=== PATIENT | female | born 1960 | race Hispanic/Latino ===

== ENCOUNTER 2018-06-21 08:28 | Outpatient (CLI) | payer SELFPAY ==
[2018-06-21 10:00] LABS: ALT (SGPT) 25 U/L (8-55); AST (SGOT) 24 U/L (5-34); Albumin 4.4 g/dL (3.5-5.0); Alkaline Phosphatase 115 U/L (40-150); Anion Gap 10 mmol/L (10-20); BUN (Urea Nitrogen) 14 mg/dL (9.8-20.1); Bilirubin, Total 1.6 mg/dL (0.2-1.2); Calc. Creatinine Clearance 0 mL/min (70-130); Calcium 9.8 mg/dL (7.8-10.44); Carbon Dioxide 30 mmol/L (22-29); Chloride 102 mmol/L (98-107); Estimated GFR-MDRD 80; Globulin 3.2 g/dL (2.4-3.5); Glucose 96 mg/dL (70-105); Potassium 3.8 mmol/L (3.5-5.1); Protein, Total 7.6 g/dL (6.0-8.3); Sodium 138 mmol/L (136-145)
--- NOTE | 2018-06-21 11:48 | CT ---
CHEST CT SCAN WITH IV CONTRAST: History: Renal insufficiency. Known renal mass, M28.89. FINDINGS: No evidence for pulmonary nodular or pulmonary metastasis. No mediastinal mass or adenopathy. No pleu ral effusion or pericardial effusion. Several small bullae. Minimal pleural thickening, particularly posteriorly on the left. Visualized upper abdomen is unremarkable. IMPRESSION: No evidence for pulmonary metastasis. No mediastinal mass or adenopathy. Several small bullae. Minima l posterior left pleural thickening. POS: [facility]
--- NOTE | 2018-06-21 12:08 | CT ---
ABDOMEN AND PELVIC CT SCAN WITH AND WITHOUT IV CONTRAST WITH MULTIPHASE IMAGING: History: Renal mass, N28.89. Renal insufficiency. FINDINGS: Visualized liver, gallbladder, pancreas, spleen, adrenal glands are unremarkable. No evidence for dalton al calculus or acute obstruction. There is a 5.4 cm diameter enhancing solid mass involving the la teral aspect of the lower lateral right kidney, evidence for renal cell carcinoma. Patent right renal vein and inferior vena cava. No evidence for adenopathy. Status post hysterectomy with a normal size d left ovary which contains two small central calcific foci. Normal appearing appendix. Minimal colon ic diverticulosis without acute diverticulitis. IMPRESSION: Solid enhancing right renal mass evidence for malignancy. Patent right renal vein and inferior vena c radha. No adenopathy or other acute process. POS: [facility]
[2018-06-21] MEDS ORDERED: Iopamidol 370 76% 100 ML VIAL ONE (13:16)
== END 2018-06-21 08:29 | disposition home or self-care (01) ==
LOC: CT 08:28
PROVIDERS: ATTEND Urology
DX: N28.89 Other specified disorders of kidney and ureter (principal); N28.9 Disorder of kidney and ureter, unspecified; R35.0 Frequency of micturition; R10.31 Right lower quadrant pain; J43.9 Emphysema, unspecified; J92.9 Pleural plaque without asbestos
CPT/HCPCS: 36415; 71260; 74178; 80053; 82565; Q9967

== ENCOUNTER 2018-07-06 09:28 | Outpatient (CLI) | payer OTHER ==
[2018-07-06 10:48] LABS: Hemoglobin 13.1 g/dL (12.0-16.0); Mean Corpuscular HGB CONC 34.3 g/dL (32.0-36.0); Mean Corpuscular Hemoglobin 31.4 pg (27.0-31.0); Mean Corpuscular Volume 91.8 fL (78.0-98.0); Platelet Count 232 thou/uL (130-400); RBC Distribution Width 11.9 % (11.5-14.5); Red Blood Cell (RBC) Count 4.18 mill/uL (4.20-5.40); White Blood Cell (WBC) Count 6.3 thou/uL (4.8-10.8)
[2018-07-06 10:55] LABS: INR-International Normal Ratio 1.1; PTT 31.4 SEC (22.9-36.1); Prothrombin Time 14.2 SEC (12.0-14.7)
--- NOTE | 2018-07-06 11:10 | RAD ---
TWO VIEW CHEST: Indication: Pre-operative evaluation. FINDINGS: ts o Cardiac silhouette is at upper limits of normal in size. There is no lobar consolidation, effusion, o r pneumothorax. Osseous structures reveal mild degenerative changes. IMPRESSION: No focal consolidation. Cardiac silhouette is at upper limits of normal. POS: [facility]
[2018-07-06 11:29] LABS: Anion Gap 13 mmol/L (10-20); BUN (Urea Nitrogen) 13 mg/dL (9.8-20.1); Calc. Creatinine Clearance 0 mL/min (70-130); Calcium 9.4 mg/dL (7.8-10.44); Carbon Dioxide 28 mmol/L (22-29); Chloride 104 mmol/L (98-107); Estimated GFR-MDRD 81; Glucose 90 mg/dL (70-105); Potassium 3.6 mmol/L (3.5-5.1); Sodium 141 mmol/L (136-145)
[2018-07-06 12:03] LABS: Bilirubin Negative (Negative); Blood, Urine Negative (Negative); Clarity CLEAR (Clear); Glucose, Urine (Dipstick) Negative (Negative); Leukocyte Negative (Negative); Nitrite Negative (Negative); Protein, Urine (Dipstick) Negative (Neg-Trace); Specific Gravity, Urine 1.019 (1.002-1.036); Urobilinogen 0.2 mg/dL (0.2-1.0)
== END 2018-07-06 09:29 | disposition home or self-care (01) ==
LOC: LABBT 09:28
PROVIDERS: ATTEND Urology
DX: Z01.818 Encounter for other preprocedural examination (principal); N28.89 Other specified disorders of kidney and ureter
CPT/HCPCS: 71046; 80048; 81003; 85027; 85610; 85730; 87086; 93005; 93010

== ENCOUNTER 2018-07-08 08:30 | Inpatient (IN) | payer OTHER, SELFPAY ==
[2018-07-06 10:08] VITALS: BMI 37.5
[2018-07-20] MEDS ORDERED: Fentanyl 250 MCG/5 ML VIAL ONE (06:22)
[2018-07-20] MEDS ORDERED: Gentamicin 80 MG/2 ML VIAL ONE (06:32)
[2018-07-20] MEDS ORDERED: Levofloxacin 500 mg/D5W 100 ml Premix Bag ONE (06:54)
[2018-07-20] MEDS ORDERED: Lidocaine 1.5% w/Epi 1:200K 30 ML VIAL (Epid Use) ONE (07:10)
[2018-07-20] MEDS ORDERED: Midazolam HCl 2 mg/2 ml Vial ONE (07:11)
[2018-07-20] MEDS ORDERED: Fentanyl 100 MCG/2 ML VIAL ONE (07:48)
[2018-07-20] MEDS ORDERED: Ropivacaine 0.2% HCl/PF 20 ML ONE (08:12)
[2018-07-20] MEDS ORDERED: Ropivacaine 0.5% HCl/PF (150 MG/30 ML VIAL) ONE (08:13)
[2018-07-20] MEDS ORDERED: Hydrocerin (Eucerin) Cream 120 gm Jar TOP PRN (08:30)
[2018-07-20] MEDS ORDERED: Promethazine HCl 25 MG SUPP PR PRN (08:30)
[2018-07-20] MEDS ORDERED: Promethazine HCl 25 MG/ML VIAL IM PRN (08:30)
[2018-07-20] MEDS ORDERED: Ondansetron PF 4 MG/2 ML Vial IVP PRN ×2 (08:30→11:33)
[2018-07-20] MEDS ORDERED: diphenhydrAMINE 50 MG/ML VIAL IM PRN (08:30)
[2018-07-20] MEDS ORDERED: Naloxone HCl 0.4 mg/ml Vial IV PRN (08:30)
[2018-07-20] MEDS ORDERED: Naloxone HCl 0.4 mg/ml Vial IVP PRN (08:30)
[2018-07-20] MEDS ORDERED: Bupivacaine 0.25% 10 ML VIAL EPIDURAL PRN (08:30)
[2018-07-20] MEDS ORDERED: diphenhydrAMINE 50 MG/ML VIAL IVP PRN (08:30)
[2018-07-20] MEDS ORDERED: Glycopyrrolate 0.2 MG/ML 5 ML SYRINGE ONE (11:33)
[2018-07-20] MEDS ORDERED: Ondansetron PF 4 MG/2 ML Vial ONE (11:33)
[2018-07-20] MEDS ORDERED: Dexamethasone 20 MG/5 ML VIAL ONE (11:33)
[2018-07-20] MEDS ORDERED: Rocuronium Bromide 10 MG/ML (10ML VIAL) ONE (11:33)
[2018-07-20] MEDS ORDERED: Lidocaine 1% PF 5 ML VIAL ONE (11:33)
[2018-07-20] MEDS ORDERED: PROPOFOL 200 MG/20 ML VIAL ONE (11:33)
[2018-07-20] MEDS ORDERED: ePHEDrine 50 MG/ML VIAL ONE ×2 (11:33)
[2018-07-20] MEDS ORDERED: hydrALAZINE 20 MG/ML VIAL SLOW IVP PRN ×2 (11:42)
[2018-07-20] MEDS ORDERED: Fentanyl 5 mcg/Bup 0.075% Cadd 100 ML EPIDURAL ONE (11:52)
[2018-07-20] MEDS ORDERED: Acetaminophen 1,000 MG in Premix Bag 1 BAG IVPB SCH (12:00)
[2018-07-20 12:09] LABS: #Lymphocytes 0.8 thou/uL (1.20-3.40); #Monocytes 0.1 thou/uL (0.11-0.59); #Neutrophils 12.1 thou/uL (1.40-6.50); %Basophils 0.1 % (0.0-1.0); %Eosinophils 0.3 % (0.0-10.0); %Lymphocytes 6.5 % (21.0-51.0); %Monocytes 0.8 % (0.0-10.0); %Neutrophils 92.4 % (42.0-75.0); Hemoglobin 12.5 g/dL (12.0-16.0); Mean Corpuscular HGB CONC 33.7 g/dL (32.0-36.0); Mean Corpuscular Hemoglobin 31.3 pg (27.0-31.0); Mean Corpuscular Volume 93.1 fL (78.0-98.0); Mean Platelet Volume 8.1 fL (7.4-10.4); Platelet Count 196 thou/uL (130-400); RBC Distribution Width 11.8 % (11.5-14.5); Red Blood Cell (RBC) Count 3.99 mill/uL (4.20-5.40); White Blood Cell (WBC) Count 13.1 thou/uL (4.8-10.8)
--- NOTE | 2018-07-20 12:18 | OP ---
DATE OF PROCEDURE: 07/20/2018 PREOPERATIVE DIAGNOSES: A 57-year-old female with history of right mid to lower pole renal mass measuring 5.4 cm, suspicious for renal cell carcinoma. POSTOPERATIVE DIAGNOSES: A 57-year-old female with history of right mid to lower pole renal mass measuring 5.4 cm, suspicious for renal cell carcinoma. PROCEDURE PERFORMED: Right radical nephrectomy. ANESTHESIA: General epidural. ASSIST: Tiburcio Powell MD ESTIMATED BLOOD LOSS: 150 mL. IV FLUIDS: 2 L. COMPLICATIONS: None apparent. DISPOSITION: To recovery room in stable condition. INDICATIONS FOR PROCEDURE AND HISTORY: Ms. Duran is a pleasant 57-year-old morbidly obese female, who was referred to me by Nephrology for right renal mass suspicious for renal cell carcinoma. Physical exam demonstrates she is morbidly obese, short in stature, otherwise unremarkable. CT demonstrates renal mass suspicious for renal cell carcinoma located in the mid to lower pole. We discussed various treatment options including attempt a partial versus radical nephrectomy. With all risks and benefits outlined, She desired to proceed with a right radical nephrectomy. Moreover given size location partial nephrectomy would be quite challenging. Metastatic workup with CT of the chest is negative. Risks and complications including, but not limited to, bleeding, pain, infection, injury to adjacent organs, PE, DVT, perioperative morbidity or mortality, wound complications such as dehiscence, bulge, or hernia, increased risk due to morbid obesity, chronic pain, renal insufficiency, failure requiring acute on chronic hemodialysis, was reviewed with her in detail. All questions were answered to her satisfaction and she desired to proceed without reservation. DESCRIPTION OF PROCEDURE: After informed consent was signed, the patient was taken to the operating room, placed in a supine position. An epidural anesthesia was administered in preoperative area. General endotracheal anesthesia and an OG tube was placed and broad-spectrum antibiotics were provided. The patient was placed in the right flank position after a 16-[place] Mike catheter was placed. All pressure points were padded and protected and secured at all times. She is morbidly obese, with a very short stature. CT corresponds renal hilum at the level of the 11th rib. Therefore, we utilized a retroperitoneal sub 11th incision to approach the kidney. Incision was made just lateral to the paraspinous muscle toward the anterior abdominal region. Subcutaneous fascia was opened to the limits of skin incision. We dissected the 11th rib to the tip, subsequently opened the anterior abdominal musculature using blunt and sharp dissection. The retroperitoneal space was entered, mobilizing the kidney superiorly and posteriorly off the psoas muscle. The ureter was sharply dissected and isolated with a vessel loop. The upper pole was easily mobilized using sharp and blunt dissection. We used intermittent cautery , and ligature to obtain hemostasis. The renal hilum was somewhat treacherous as there were parasitic vessels. Moreover, the peritoneum was densely adherent to the anterior portion of the renal mass. Therefore, we carefully dissected the upper pole complete leaving the adrenal gland in-situ. At this time, we mobilized the kidney from the ureter to the UPJ dissecting the inferior pole of the kidney. The peritoneum appeared to be very adherent to the anterior aspect of the kidney, where the renal mass was present. Using sharp dissection, we tried to mobilize the peritoneum off the renal mass. There appeared to be a peritoneal breach at the level of the mid to upper pole. We did see a breach, in which liver was visualized. There was no inadvertent injury to the liver. At this time, I was able to mobilize the renal hilum posteriorly approaching the hilum as the anterior aspect was somewhat treacherous. There was a main renal artery corresponding to the CT. The renal artery was sharply dissected and doubly ligated using 0 silk. Large hemoclips were also applied and it was subsequently divided. The renal vein remained in- situ. We mobilized the kidney anteriorly with the renal artery divided. The anterior aspect of the kidney off the renal mass and was subsequently dissected to render the rest of the peritoneum free off the renal mass. Therefore, at this time, the only thing that was attached in the kidney was the renal vein, which was isolated using 0 silk tie, ligated x2, and filipe x2, and divided subsequently. The peritoneal breech at the level of the liver was then closed with 2-0 chromic in a continuous fashion. The wound was copiously irrigated. Floseal was then placed at the level of the renal hilum. The patient was placed in a relatively neutral position and the incision was closed in 2 layers with 0 PDS. We did irrigate the wound with irrigation prior to closure. The skin was closed with skin filipe. She tolerated the procedure well. Extubated and transported to the recovery room in stable condition. Job ID: [id number] [facility]
[2018-07-20 12:30] LABS: Anion Gap 12 mmol/L (10-20); BUN (Urea Nitrogen) 9 mg/dL (9.8-20.1); Calc. Creatinine Clearance 114 mL/min (70-130); Calcium 8.7 mg/dL (7.8-10.44); Carbon Dioxide 25 mmol/L (22-29); Chloride 106 mmol/L (98-107); Estimated GFR-MDRD 74; Glucose 132 mg/dL (70-105); Potassium 3.8 mmol/L (3.5-5.1); Sodium 139 mmol/L (136-145)
--- NOTE | 2018-07-20 12:35 | RAD ---
PORTABLE CHEST: History: Patient is status post right nephrectomy. Evaluation for pneumothorax. FINDINGS: Heart size is enlarged. Mediastinal structures are unremarkable. Free air under the right hemidiaphra gm compatible with recent surgery. There is a tiny apical pneumothorax present. Left lung is clear. IMPRESSION: Tiny right apical pneumothorax. POS: [facility]
[2018-07-20] MEDS: Sodium Chloride 0.9% 1,000 ML IV SCH ×2 (13:23→21:30)
[2018-07-20] MEDS: ADMIXTURE FEE CHEMO IVPB SCH ×2 (14:42→21:32)
[2018-07-20] MEDS: SODIUM CHLORIDE 0.9% IVPB SCH ×2 (14:42→21:32)
[2018-07-20] MEDS: CEFOXITIN IVPB SCH ×2 (14:42→21:32)
[2018-07-20] MEDS: Albuterol Sulfate 1.25 MG/3 ML NEB NEB SCH ×2 (15:04→21:17)
--- NOTE | 2018-07-20 17:02 | RAD ---
PORTABLE CHEST: Date: 07/20/18 HISTORY: Follow-up pneumothorax. COMPARISON: Earlier exam of same date. FINDINGS: The tiny apical pneumothorax seen on the right side on the previous study is not definitely visualize d on this study. Free air related to right nephrectomy under the hemidiaphragm is again present. IMPRESSION: Right pneumothorax appears to have resolved. I do not see any definite pneumothorax on this film. Findings discussed with Dr. Gregory. CODE CR. POS: [facility]
[2018-07-20] MEDS: Mometasone/Formoterol 120 PUFF INHALER INH SCH (18:48)
[2018-07-20] MEDS ORDERED: [UNRECOGNIZED DRUG - OTHER] PO SCH (21:00)
[2018-07-20] MEDS: Acetaminophen 1,000 MG in Premix Bag 1 BAG IVPB SCH (21:30)
[2018-07-20] MEDS: Famotidine/PF 20 mg/2ml Vial SLOW IVP SCH (21:31)
[2018-07-20] MEDS: Docusate 100 MG CAP PO SCH (21:31)
[2018-07-20] MEDS: Hydrochlorothiazide 25 MG TAB PO SCH (21:31)
[2018-07-21] MEDS: Acetaminophen 1,000 MG in Premix Bag 1 BAG IVPB SCH ×2 (03:33→09:15)
[2018-07-21] MEDS: Fentanyl 5 mcg/Bup 0.075% Cadd 100 ML EPIDURAL SCH ×2 (04:21→21:27)
[2018-07-21 05:14] LABS: #Lymphocytes 1.5 thou/uL (1.20-3.40); #Neutrophils 14.7 thou/uL (1.40-6.50); %Basophils 0.2 % (0.0-1.0); %Eosinophils 0.1 % (0.0-10.0); %Lymphocytes 8.7 % (21.0-51.0); %Monocytes 5.6 % (0.0-10.0); %Neutrophils 85.4 % (42.0-75.0); Hemoglobin 11.3 g/dL (12.0-16.0); Mean Corpuscular HGB CONC 33.2 g/dL (32.0-36.0); Mean Corpuscular Volume 93.3 fL (78.0-98.0); Mean Platelet Volume 7.6 fL (7.4-10.4); Platelet Count 179 thou/uL (130-400); Red Blood Cell (RBC) Count 3.65 mill/uL (4.20-5.40); White Blood Cell (WBC) Count 17.2 thou/uL (4.8-10.8)
[2018-07-21] MEDS: Sodium Chloride 0.9% 1,000 ML IV SCH ×3 (05:21→13:36)
[2018-07-21 05:24] LABS: Anion Gap 14 mmol/L (10-20); BUN (Urea Nitrogen) 13 mg/dL (9.8-20.1); Calc. Creatinine Clearance 77 mL/min (70-130); Calcium 8.5 mg/dL (7.8-10.44); Carbon Dioxide 21 mmol/L (22-29); Chloride 107 mmol/L (98-107); Estimated GFR-MDRD 47; Glucose 132 mg/dL (70-105); Potassium 4.1 mmol/L (3.5-5.1); Sodium 138 mmol/L (136-145)
[2018-07-21] MEDS: ADMIXTURE FEE CHEMO IVPB SCH ×3 (05:58→21:27)
[2018-07-21] MEDS: CEFOXITIN IVPB SCH ×3 (05:58→21:27)
[2018-07-21] MEDS: SODIUM CHLORIDE 0.9% IVPB SCH ×3 (05:58→21:27)
[2018-07-21] MEDS: Mometasone/Formoterol 120 PUFF INHALER INH SCH ×2 (08:05→18:44)
[2018-07-21] MEDS: Albuterol Sulfate 1.25 MG/3 ML NEB NEB SCH ×3 (08:11→18:42)
--- NOTE | 2018-07-21 08:12 | PRG ---
DATE OF SERVICE: 07/21/2018 SUBJECTIVE: The patient is doing well. Pain is adequately controlled with epidural. Denies nausea, vomiting, fever. Has good appetite. The patient denies short shortness of breath. OBJECTIVE: VITAL SIGNS: Stable. T-max of 99, T current 98.6, 72, 16, 100% on room air, 91/55. I and Os 3430 in, 1450 out. Urine is clear. P.o. intake is 1230. She is positive 1.9 L. GENERAL: The patient is in no acute distress. LUNGS: Clear to auscultation. ABDOMEN: Incision is clean, dry, and intact. Dressing changed. No ecchymosis or hematoma appreciated. Bowel sounds present. Nontender, nondistended. No rigidity. No rebound. EXTREMITIES: No cyanosis, clubbing, edema or calf tenderness. PERTINENT LABORATORY DATA: White count 17, hemoglobin stable at 11.3, platelet 179. Chemistry profile within normal limits. BUN 13, creatinine 1.1. Pathology is pending. IMPRESSION AND PLAN: Ms. Duran is a 57-year-old female with history of large right renal mass, postop day #1, status post right radical nephrectomy. Continue epidural for pain, physical therapy consultation for walking program to be out of bed. We will continue DVT prophylaxis with aggressive ambulation, bilateral CASSY hose and SCDs for now. will monitor her H and H. decrease her IV fluids to 80 mL, continue low rate of IV fluids as she is hypotensive from the epidural. Surgically stable. We will advance diet as tolerated. Chest x-ray pending this morning. Job ID: [id number] [facility]
--- NOTE | 2018-07-21 08:34 | RAD ---
AP VIEW CHEST: HISTORY: Followup right-sided pneumothorax post abdominal surgery. FINDINGS: AP view chest demonstrates gas seen beneath the right hemidiaphragm. Previously noted right apical pneumothorax noted on 1st radiograph on 07/20/2018 and not revisualized on 2nd radiograph on 07/20/2018 again not visualized. No evidence of a right-sided pneumothorax is se en at this time. The left lug is well aerated. No evidence of pneumonia is seen. IMPRESSION: 1. Apparent gas beneath the right hemidiaphragm with right-sided surgical changes and gas seen in th e subcutaneous tissues. 2. No evidence of right-sided pneumothorax. POS: [facility]
[2018-07-21] MEDS ORDERED: Non-Formulary Item 1 EACH (Fluticasone/Salmeterol [Advair Diskus 250/50] 1 PUFF) PO SCH (09:00)
[2018-07-21] MEDS: diphenhydrAMINE 25 MG CAP PO PRN ×2 (09:15→18:49)
[2018-07-21] MEDS: Famotidine/PF 20 mg/2ml Vial SLOW IVP SCH ×2 (09:15→20:09)
[2018-07-21] MEDS: Docusate 100 MG CAP PO SCH ×2 (09:15→20:09)
[2018-07-21] MEDS: traMADol HCl 50 MG TAB PO PRN (18:50)
[2018-07-21] MEDS: Hydrochlorothiazide 25 MG TAB PO SCH (20:08)
[2018-07-22] MEDS: traMADol HCl 50 MG TAB PO PRN ×4 (00:14→22:09)
[2018-07-22] MEDS: Zolpidem Tartrate 5 MG TAB PO PRN ×2 (00:23→23:30)
[2018-07-22] MEDS: diphenhydrAMINE 25 MG CAP PO PRN ×5 (00:23→22:09)
[2018-07-22] MEDS: Sodium Chloride 0.9% 1,000 ML IV SCH (00:27)
[2018-07-22 04:56] LABS: #Lymphocytes 1.4 thou/uL (1.20-3.40); #Monocytes 0.8 thou/uL (0.11-0.59); #Neutrophils 11.5 thou/uL (1.40-6.50); %Basophils 0.3 % (0.0-1.0); %Eosinophils 0.1 % (0.0-10.0); %Lymphocytes 9.9 % (21.0-51.0); %Monocytes 5.4 % (0.0-10.0); %Neutrophils 84.2 % (42.0-75.0); Mean Corpuscular Hemoglobin 31.2 pg (27.0-31.0); Mean Corpuscular Volume 94.5 fL (78.0-98.0); Platelet Count 181 thou/uL (130-400); RBC Distribution Width 12.1 % (11.5-14.5); Red Blood Cell (RBC) Count 3.52 mill/uL (4.20-5.40); White Blood Cell (WBC) Count 13.7 thou/uL (4.8-10.8)
[2018-07-22 05:15] LABS: Anion Gap 12 mmol/L (10-20); BUN (Urea Nitrogen) 11 mg/dL (9.8-20.1); Calc. Creatinine Clearance 79 mL/min (70-130); Calcium 8.3 mg/dL (7.8-10.44); Carbon Dioxide 22 mmol/L (22-29); Chloride 105 mmol/L (98-107); Estimated GFR-MDRD 48; Glucose 147 mg/dL (70-105); Potassium 3.5 mmol/L (3.5-5.1); Sodium 135 mmol/L (136-145)
[2018-07-22] MEDS: CEFOXITIN IVPB SCH ×3 (06:42→21:50)
[2018-07-22] MEDS: ADMIXTURE FEE CHEMO IVPB SCH ×3 (06:42→21:50)
[2018-07-22] MEDS: SODIUM CHLORIDE 0.9% IVPB SCH ×3 (06:42→21:50)
[2018-07-22] MEDS: Bisacodyl 10 MG SUPP PR PRN (06:56)
--- NOTE | 2018-07-22 08:32 | PRG ---
DATE OF SERVICE: 07/22/2018 SUBJECTIVE: The patient states that she feels "bloated," has not yet passed the gas; however, she denies nausea or vomiting, decreased appetite. Also, has some worsening incisional discomfort today at the incision in the right upper chest cavity. States that this is worse with performing incentive spirometry. Denies chest pain or shortness of breath. PHYSICAL EXAMINATION: VITAL SIGNS: Stable. T-max of 99.8, heart rate 95, respiratory rate 18, O2 saturation 95% on room air, and blood pressure 119/72. I's and O's, her p.o. intake is 2500 in and 2950 out, she is negative 450 mL. GENERAL: The patient is alert and oriented. Daughter at bedside. CHEST: Clear. No crackles. ABDOMEN: Obese, protuberant. There are some irritative changes of her skin from the tape. Incision is clean, dry, and intact. Her subjective discomfort is along the incision line and along her right subcostal margin. Most of it is reproducible with her taking a deep breath consistent with incisional discomfort. EXTREMITIES: No cyanosis, clubbing, or edema. Mike draining clear urine. PERTINENT LABORATORY DATA: White count 13, hemoglobin stable at 11.0, and platelet 181. Sodium 135 and creatinine is stable at 1.1. Pathology is pending. IMPRESSION AND PLAN: 1. A 57-year-old female with history of morbid obesity, history of hypertension, history of large right renal mass, and postop day #2, status post right open radical nephrectomy. Continue epidural at a rate of 6 as she continues to have incisional discomfort. 2. History of tiny right pneumothorax, postop, resolved. will obtain a followup PA-lateral chest x-ray given her above complaints. Her discomfort appears to be mostly incision related; however, followup PA-lateral chest x-ray would be prudent. If her H and H are stable tomorrow, will start Lovenox for deep venous thrombosis prophylaxis. In the interim, she has been ambulating four times a day with bilateral CASSY hose SCDs. Continue antibiotic regimen for now if there is possibility of possible pneumonia component as well. will continue regular diet for now as she has good bowel sounds. Suppository provided this morning. Job ID: [id number] [facility]
[2018-07-22] MEDS: Albuterol Sulfate 1.25 MG/3 ML NEB NEB SCH ×5 (09:09→18:44)
--- NOTE | 2018-07-22 09:15 | RAD ---
CHEST 2 VIEWS: HISTORY: Status post right nephrectomy. FINDINGS: There is some persistent free intraperitoneal air and some subcutaneous emphysema in the right lower lateral chest and abdomen. Minimal linear parenchymal changes in the lung bases, possibly mild subse gmental atelectasis. Slight costophrenic angle blunting, possibly small pleural effusions. No signi ficant confluent pneumonia. No significant cardiomegaly. IMPRESSION: Persistent free intraperitoneal air with minimal linear parenchymal changes in the lung bases and lori e slight costophrenic angle blunting, overall stable. No significant new process. POS: [facility]
[2018-07-22] MEDS: Famotidine/PF 20 mg/2ml Vial SLOW IVP SCH ×2 (09:54→21:43)
[2018-07-22] MEDS: Docusate 100 MG CAP PO SCH ×2 (09:54→21:45)
[2018-07-22] MEDS: Acetaminophen 325 MG TAB PO PRN ×3 (10:01→22:11)
[2018-07-22] MEDS: Mometasone/Formoterol 120 PUFF INHALER INH SCH ×2 (10:10→18:45)
[2018-07-22] MEDS: Fentanyl 5 mcg/Bup 0.075% Cadd 100 ML EPIDURAL SCH (15:02)
[2018-07-22] MEDS: Hydrochlorothiazide 25 MG TAB PO SCH (21:44)
[2018-07-23] MEDS: Acetaminophen 325 MG TAB PO PRN ×3 (04:29→17:21)
[2018-07-23] MEDS: traMADol HCl 50 MG TAB PO PRN ×3 (04:29→17:21)
[2018-07-23] MEDS: diphenhydrAMINE 25 MG CAP PO PRN ×3 (04:29→17:21)
[2018-07-23 05:02] LABS: #Eosinphils 0.2 thou/uL (0.0-0.7); #Lymphocytes 1.9 thou/uL (1.20-3.40); #Monocytes 0.7 thou/uL (0.11-0.59); #Neutrophils 7.4 thou/uL (1.40-6.50); %Basophils 0.4 % (0.0-1.0); %Eosinophils 1.8 % (0.0-10.0); %Lymphocytes 18.9 % (21.0-51.0); %Monocytes 6.3 % (0.0-10.0); %Neutrophils 72.6 % (42.0-75.0); Hemoglobin 11.4 g/dL (12.0-16.0); Mean Corpuscular HGB CONC 33.2 g/dL (32.0-36.0); Mean Corpuscular Hemoglobin 31.4 pg (27.0-31.0); Mean Corpuscular Volume 94.4 fL (78.0-98.0); Mean Platelet Volume 7.7 fL (7.4-10.4); Platelet Count 173 thou/uL (130-400); Red Blood Cell (RBC) Count 3.63 mill/uL (4.20-5.40); White Blood Cell (WBC) Count 10.2 thou/uL (4.8-10.8)
[2018-07-23 05:19] LABS: Anion Gap 10 mmol/L (10-20); BUN (Urea Nitrogen) 8 mg/dL (9.8-20.1); Calc. Creatinine Clearance 90 mL/min (70-130); Calcium 8.8 mg/dL (7.8-10.44); Carbon Dioxide 28 mmol/L (22-29); Chloride 103 mmol/L (98-107); Estimated GFR-MDRD 56; Glucose 95 mg/dL (70-105); Potassium 3.7 mmol/L (3.5-5.1); Sodium 137 mmol/L (136-145)
[2018-07-23] MEDS: ADMIXTURE FEE CHEMO IVPB SCH (05:34)
[2018-07-23] MEDS: CEFOXITIN IVPB SCH (05:34)
[2018-07-23] MEDS: SODIUM CHLORIDE 0.9% IVPB SCH (05:34)
[2018-07-23] MEDS: Fentanyl 5 mcg/Bup 0.075% Cadd 100 ML EPIDURAL SCH (06:31)
[2018-07-23] MEDS: Albuterol Sulfate 1.25 MG/3 ML NEB NEB SCH ×3 (07:00→23:10)
[2018-07-23] MEDS: Famotidine/PF 20 mg/2ml Vial SLOW IVP SCH ×2 (09:18→22:31)
[2018-07-23] MEDS: Docusate 100 MG CAP PO SCH ×2 (09:18→22:33)
[2018-07-23] MEDS: Bisacodyl 10 MG SUPP PR PRN (09:22)
[2018-07-23] MEDS: Mometasone/Formoterol 120 PUFF INHALER INH SCH ×3 (10:35→23:08)
--- NOTE | 2018-07-23 12:50 | PRG ---
DATE OF SERVICE: 07/23/2018 SUBJECTIVE: The patient resting currently, pain is adequately controlled, currently with an epidural at 5 mcg. Denies nausea or vomiting. Had Dulcolax suppository yesterday. Had small bowel movement subsequently. Does states that she feels distended. Per daughter at bedside, this has been an ongoing issue with GI symptoms of indigestion, which prompted workup diagnosing her renal mass. Has tendency for constipation per daughter and patient. She is tolerating regular food, has not had emesis. OBJECTIVE: VITAL SIGNS: Stable. She is afebrile, 98, 76, 18, 96% on room air , and blood pressure has been stable, this morning is 160/96. LUNGS: Clear to auscultation. Incision is clean, dry, and intact. ABDOMEN: Soft, obese, and protuberant. It is soft. There is active bowel sounds. EXTREMITIES: No cyanosis, clubbing, or edema. Urine output is clear. PERTINENT LABORATORY DATA: White count 10, hemoglobin stable at 11.4, and platelet 173. BMP profile is within normal limits with creatinine stable at 1.01. Pathology demonstrates margin negative disease, clear cell renal cell carcinoma, pathologic TP T1b NX, Skye grade 2, margin negative disease. IMPRESSION AND PLAN: 1. Ms. Duran is a 57-year-old morbidly obese female, postop day #3, status post right radical nephrectomy. Her epidurals going at 5 mcg. will slowly titrate epidural and monitor for tolerance. This will be initiated tomorrow. will start Lovenox for deep venous thrombosis prophylaxis. Informed the patient to be aggressively out of bed. Mike will be discontinued when epidural is out. Anticipate the patient will most likely stay for another day or 2, until pain is controlled off epidural and having bowel movements or passing flatus. She is surgically stable. History of chronic constipation. Aggressive bowel regimen suppository Job ID: [id number] [facility]
[2018-07-23] MEDS: Hydrochlorothiazide 25 MG TAB PO SCH (22:33)
[2018-07-23] MEDS: Zolpidem Tartrate 5 MG TAB PO PRN (22:36)
[2018-07-23] MEDS: Enoxaparin Sodium 40 MG/0.4 ML SYRINGE SC SCH (23:17)
[2018-07-24] MEDS: Fentanyl 5 mcg/Bup 0.075% Cadd 100 ML EPIDURAL SCH (04:43)
[2018-07-24 06:07] LABS: #Eosinphils 0.3 thou/uL (0.0-0.7); #Lymphocytes 2.4 thou/uL (1.20-3.40); #Monocytes 0.7 thou/uL (0.11-0.59); #Neutrophils 6.4 thou/uL (1.40-6.50); %Basophils 0.4 % (0.0-1.0); %Lymphocytes 24.6 % (21.0-51.0); %Monocytes 6.6 % (0.0-10.0); %Neutrophils 65.3 % (42.0-75.0); Hemoglobin 11.1 g/dL (12.0-16.0); Mean Corpuscular HGB CONC 32.9 g/dL (32.0-36.0); Mean Corpuscular Volume 94.2 fL (78.0-98.0); Mean Platelet Volume 7.6 fL (7.4-10.4); Platelet Count 226 thou/uL (130-400); RBC Distribution Width 11.8 % (11.5-14.5); Red Blood Cell (RBC) Count 3.57 mill/uL (4.20-5.40); White Blood Cell (WBC) Count 9.8 thou/uL (4.8-10.8)
[2018-07-24 06:35] LABS: Anion Gap 12 mmol/L (10-20); BUN (Urea Nitrogen) 9 mg/dL (9.8-20.1); Calc. Creatinine Clearance 93 mL/min (70-130); Calcium 9.2 mg/dL (7.8-10.44); Carbon Dioxide 29 mmol/L (22-29); Chloride 100 mmol/L (98-107); Estimated GFR-MDRD 58; Glucose 78 mg/dL (70-105); Potassium 3.8 mmol/L (3.5-5.1); Sodium 137 mmol/L (136-145)
[2018-07-24] MEDS: Albuterol Sulfate 1.25 MG/3 ML NEB NEB SCH ×3 (07:43→23:02)
[2018-07-24] MEDS: Mometasone/Formoterol 120 PUFF INHALER INH SCH ×2 (08:02→19:35)
[2018-07-24] MEDS: Docusate 100 MG CAP PO SCH ×2 (10:01→19:48)
[2018-07-24] MEDS: Acetaminophen 325 MG TAB PO PRN ×2 (10:02→19:43)
[2018-07-24] MEDS: traMADol HCl 50 MG TAB PO PRN ×2 (10:03→19:42)
[2018-07-24] MEDS: Famotidine/PF 20 mg/2ml Vial SLOW IVP SCH (11:55)
[2018-07-24] MEDS ORDERED: Famotidine 20 MG TAB PO SCH (12:00)
--- NOTE | 2018-07-24 14:47 | PRG ---
DATE OF SERVICE: 07/24/2018 SUBJECTIVE: The patient feels well today. Her appetite is back and she has tolerated regular diet for breakfast and lunch. She did have an episode of emesis last night. She denies nausea, vomiting today. Has been ambulatory as I had advised. Her epidural medication has been discontinued. Epidural catheter remains intact for tolerability to narcotics. OBJECTIVE: VITAL SIGNS: Her vital signs are stable at 98, 90, 18, 96, 95/65 is her blood pressure. I's and O's is 2420 in, 3000 out. Had one bowel movement yesterday. She feels that she needs most likely a bowel movement today as there is sensation. She has been ambulatory. LUNGS: Clear. ABDOMEN: Soft, obese, protuberant. Active bowel sounds. Incision is clean, dry, and intact. There is some reactive ecchymosis as expected with no evidence of hematoma. EXTREMITIES: No cyanosis, clubbing, or edema. LABORATORY DATA: White count 9.8, hemoglobin 11.1, platelet 226. BMP profile is within normal limits. Creatinine 0.98. IMPRESSION AND PLAN: Ms. Duran is a 57-year-old morbidly obese female, postop day #4, status post right open radical nephrectomy. Her epidural medication has been held for tolerability. [place] provided by the Pain Service for tolerability will be provided with Benadryl. She did have an episode of emesis last night, however, has had a bowel movement with active bowel sounds. The patient is encouraged to be out of bed. If recurrent emesis with nausea, vomiting, bowel rest would be advised. Her labs are stable. Anticipate if the patient has no issues with diet, having successful bowel movement, possible discharge tomorrow morning. Job ID: [id number] [facility]
[2018-07-24] MEDS ORDERED: HYDROcodone/Acetaminophen 5/325 mg Tablet PO PRN ×2 (15:00)
[2018-07-24] MEDS: diphenhydrAMINE 25 MG CAP PO PRN (19:43)
[2018-07-24] MEDS: Famotidine 20 MG TAB PO SCH (19:49)
[2018-07-24] MEDS: Hydrochlorothiazide 25 MG TAB PO SCH (19:52)
[2018-07-24] MEDS: Enoxaparin Sodium 40 MG/0.4 ML SYRINGE SC SCH (19:55)
[2018-07-24] MEDS: Zolpidem Tartrate 5 MG TAB PO PRN (21:59)
[2018-07-25 06:42] LABS: #Eosinphils 0.2 thou/uL (0.0-0.7); #Lymphocytes 1.8 thou/uL (1.20-3.40); #Monocytes 0.6 thou/uL (0.11-0.59); #Neutrophils 5.2 thou/uL (1.40-6.50); %Basophils 0.4 % (0.0-1.0); %Lymphocytes 22.7 % (21.0-51.0); %Monocytes 7.3 % (0.0-10.0); %Neutrophils 66.6 % (42.0-75.0); Hemoglobin 11.4 g/dL (12.0-16.0); Mean Corpuscular HGB CONC 33.7 g/dL (32.0-36.0); Mean Corpuscular Volume 91.7 fL (78.0-98.0); Mean Platelet Volume 7.3 fL (7.4-10.4); Platelet Count 256 thou/uL (130-400); RBC Distribution Width 11.7 % (11.5-14.5); Red Blood Cell (RBC) Count 3.67 mill/uL (4.20-5.40); White Blood Cell (WBC) Count 7.9 thou/uL (4.8-10.8)
[2018-07-25 06:58] LABS: Anion Gap 12 mmol/L (10-20); BUN (Urea Nitrogen) 11 mg/dL (9.8-20.1); Calc. Creatinine Clearance 91 mL/min (70-130); Calcium 9.1 mg/dL (7.8-10.44); Carbon Dioxide 32 mmol/L (22-29); Chloride 97 mmol/L (98-107); Estimated GFR-MDRD 57; Glucose 89 mg/dL (70-105); Potassium 3.9 mmol/L (3.5-5.1); Sodium 137 mmol/L (136-145)
--- NOTE | 2018-07-25 07:40 | PRG ---
DATE OF SERVICE: 07/25/2018 SUBJECTIVE: The patient without complaints, doing well, tolerated epidural, discontinued, p.o. pain medication with good pain control. Minimal itching. She has had a bowel movement. Tolerating regular diet. OBJECTIVE: VITAL SIGNS: Stable. ABDOMEN: Soft, nontender, and nondistended. Incision is clean, dry, and intact. Minimal ecchymosis. Stable. No rigidity. No rebound. Bowel sounds are active. EXTREMITIES: No cyanosis, clubbing, or edema. PERTINENT LABORATORY DATA: Creatinine stable at 1.0. White count 7, hemoglobin stable at 11.1, and platelet 256. IMPRESSION AND PLAN: A 57-year-old female with history of morbid obesity, history of right renal mass. Postop day #5, status post right open radical nephrectomy. The patient has tolerated epidural, discontinued, tolerating pain medication of [place] without significant side effects. will discontinue Mike, check patient this afternoon. If voiding without significant issues, discharge after lunch. Job ID: [id number] [facility]
[2018-07-25] MEDS: Albuterol Sulfate 1.25 MG/3 ML NEB NEB SCH (07:48)
[2018-07-25] MEDS: Mometasone/Formoterol 120 PUFF INHALER INH SCH (07:50)
[2018-07-25] MEDS: Acetaminophen 325 MG TAB PO PRN (07:50)
[2018-07-25] MEDS: diphenhydrAMINE 25 MG CAP PO PRN (07:50)
[2018-07-25] MEDS: traMADol HCl 50 MG TAB PO PRN (07:50)
[2018-07-25] MEDS: Famotidine 20 MG TAB PO SCH (07:50)
[2018-07-25] MEDS: Docusate 100 MG CAP PO SCH (08:02)
--- NOTE | 2018-07-25 10:53 | DIS ---
DATE OF ADMISSION: 07/20/2018 DATE OF DISCHARGE: 07/25/2018 ADMITTING DIAGNOSIS: Right renal mass. PROCEDURE PERFORMED: Right radical nephrectomy. CONDITION: Stable. DISPOSITION: To home with excellent self-care and family support. BRIEF HOSPITAL COURSE: Ms. Duran is a 57-year-old female, who presented with large right renal mass, underwent right radical nephrectomy. The patient has had chronic GI issues of intermittent constipation and workup demonstrated a right renal mass. Surgery was uneventful. She remained hemodynamically stable with subsequent renal function stable. Her final pathology demonstrated pathologic T1b grade 2 clear cell renal cell carcinoma, Skye grade 2. Her epidural has been discontinued and her pain is adequately controlled with [place] 5/325 with occasional Benadryl for itching. She has had multiple bowel movements and voided without significant issues with the epidural removed. She had a tiny pneumothorax in the immediate postop period, which resolved 2 to 3 hours after with followup chest x-ray. She has not had any significant respiratory issues. appointment in chart for this Wednesday for wound check and staple removal. DISCHARGE MEDICATIONS: Include; 1. [place] 5/325, 40, 1 to 2 p.o. q.6 hours p.r.n. 2. Colace 100 mg 1 p.o. b.i.d. 3. She is to resume her home medications. No aspirin or ibuprofen products are advised. Job ID: [id number] [facility]
[2018-07-25 11:33] VITALS: BP 123/79; TEMP 97.6
== END 2018-07-25 12:40 | disposition home or self-care (01) | DRG 658 ==
LOC: SURG A 07-20 06:09 → SJJU 07-20 13:13
PROVIDERS: ADMIT Urology; ATTEND Urology
PROC: 0TT00ZZ Resection of Right Kidney, Open Approach (ICD-10-PCS; principal; 2018-07-20)
DX: C64.1 Malignant neoplasm of right kidney, except renal pelvis (principal); E66.01 Morbid (severe) obesity due to excess calories; Z68.37 Body mass index [BMI] 37.0-37.9, adult
CPT/HCPCS: 36415; 71045; 71046; 80048; 85025; 88307; 94640; 94664; 94760; J0131; J0694; J1100; J1200; J1580; J1650; J1956; J2001; J2250; J2405; J2704; J2795; J3010; J3490; J7050; Q0163; Q9968; S0028

== ENCOUNTER 2018-07-15 14:51 | Outpatient (CLI) | payer OTHER | END 2018-07-15 14:52 | disposition home or self-care (01) | LOC: LABBT 14:51 | PROVIDERS: ATTEND Urology | DX: Z01.812 Encounter for preprocedural laboratory examination (principal); N28.89 Other specified disorders of kidney and ureter | CPT/HCPCS: 86850; 86900; 86901 ==

== ENCOUNTER 2019-06-26 09:40 | Outpatient (CLI) | payer BC ==
--- NOTE | 2019-06-26 10:18 | RAD ---
CHEST 2 VIEWS: Date: 06/26/2019 HISTORY: Clear cell carcinoma right kidney. COMPARISON: 07/22/2018. FINDINGS: Heart size is upper range of normal. No confluent pneumonia, overt edema, or pleural effusion. No mauro dence of pulmonary metastasis. IMPRESSION: Borderline heart size. No acute intrathoracic disease. No evidence for metastasis. POS: [facility]
== END 2019-06-26 09:41 | disposition home or self-care (01) ==
LOC: RAD 09:40
PROVIDERS: ATTEND Urology
DX: C64.1 Malignant neoplasm of right kidney, except renal pelvis (principal)
CPT/HCPCS: 36415; 71046; 80053; 81001; 87086

== ENCOUNTER 2020-09-09 13:22 | Outpatient (CLI) | payer BC | END 2020-09-09 13:23 | disposition home or self-care (01) | LOC: BICULT 13:22 | PROVIDERS: ATTEND Urology | DX: C64.1 Malignant neoplasm of right kidney, except renal pelvis (principal) | CPT/HCPCS: 74018; 76770 ==

== ENCOUNTER 2021-06-09 12:47 | Outpatient (CLI) | payer BC | END 2021-06-09 12:48 | disposition home or self-care (01) | LOC: BICMAMMO 12:47 | PROVIDERS: ATTEND Physician Assistant | DX: Z12.31 Encounter for screening mammogram for malignant neoplasm of breast (principal); Z85.528 Personal history of other malignant neoplasm of kidney | CPT/HCPCS: 77063; 77067 ==

== ENCOUNTER 2023-10-22 09:06 | Outpatient (CLI) | payer OTHER | END 2023-10-22 09:07 | disposition home or self-care (01) | LOC: BICULT 09:06 | PROVIDERS: ATTEND Urology | DX: C64.1 Malignant neoplasm of right kidney, except renal pelvis (principal); N28.9 Disorder of kidney and ureter, unspecified | CPT/HCPCS: 71046; 76770 ==